=== PATIENT | female | born 1985 | race African-American/Black ===

== ENCOUNTER 2021-06-30 13:41 | Emergency (ER) | payer MEDICAID ==
[~2021-06-30] VITALS: Ht 165.1 cm; Wt 100.7 kg
[2021-06-30 14:03] VITALS: BP 140/80
--- NOTE | 2021-06-30 14:58 | NUR ---
urine in dirty utility
--- NOTE | 2021-06-30 15:00 | NUR ---
36 y/o female, c/o low back pain, pelvic pain for 2 months. denies dysuria, hemturia, vaginal bleeding/discharge or n&v. pmh: denies nka med: denies
[2021-06-30 15:11] LABS: BASOPHILS % (AUTO) 0.3 % (0.0-2.0); EOSINOPHILS # (AUTO) 0.1 K/uL (0-0.4); EOSINOPHILS % (AUTO) 0.8 % (0.0-4.0); HEMATOCRIT 34.3 % (36-48); HEMOGLOBIN 11.5 g/dL (12.0-16.0); LYMPHOCYTES # (AUTO) 1.3 K/uL (2.5-16.5); LYMPHOCYTES % (AUTO) 21.2 % (20.5-51.1); MEAN CORPUSCULAR HEMOGLOBIN 30 pg (27-31); MEAN CORPUSCULAR HGB CONC 34 g/dL (33-37); MEAN CORPUSCULAR VOLUME 87.9 fL (80-94); MONOCYTES # (AUTO) 0.5 K/uL (0.8-1.0); MONOCYTES % (AUTO) 8.6 % (1.7-9.3); NEUTROPHILS # (AUTO) 4.3 K/uL (1.8-7.7); NEUTROPHILS % (AUTO) 69.1 % (42.2-75.2); PLATELET COUNT (AUTO) 290 K/uL (140-450); RED CELL DISTRIBUTION WIDTH 13.7 % (11.6-13.7); WHITE BLOOD COUNT (AUTO) 6.3 K/uL (4.8-10.8)
[2021-06-30 15:11] LABS: APPEARANCE,URINE CLEAR (CLEAR); BILIRUBIN,URINE NEGATIVE (NEGATIVE); BLOOD, URINE TRACE-I (NEGATIVE); COLOR,URINE YELLOW (YELLOW); LEUKOCYTE ESTERASE ,URINE NEGATIVE (NEGATIVE); NITRITE, URINE NEGATIVE (NEGATIVE); UGLUCOSE NEGATIVE (NEGATIVE)
[2021-06-30 15:23] LABS: RBC,URINE 0-5 /HPF (0-5); WBC,URINE 0-5 /HPF (0-5)
[2021-06-30 15:28] LABS: ALBUMIN 3.6 g/dL (3.4-5.0); ANION GAP 12.8 (8-16); CARBON DIOXIDE 25.8 mmol/L (21-32); CREATININE 0.6 mg/dL (0.6-1.3); POTASSIUM 3.6 mmol/L (3.5-5.1); TOTAL BILIRUBIN 0.2 mg/dL (0.0-1.0)
[2021-06-30] MEDS ORDERED: ACET-10509 PO (17:40)
[2021-06-30 18:10] VITALS: BP 140/80
== END 2021-06-30 18:10 | disposition home or self-care (01) ==
LOC: MED 13:41
DX: O26.892 Other specified pregnancy related conditions, second trimester (principal); R10.2 Pelvic and perineal pain; Z3A.13 13 weeks gestation of pregnancy; Z79.899 Other long term (current) drug therapy
CPT/HCPCS: 36415; 76801; 80053; 81001; 81025; 83690; 84702; 85025; 99284; Q0092

== ENCOUNTER 2022-01-10 09:11 | Emergency (ER) | payer MEDICAID ==
[~2022-01-10] VITALS: Ht 165.1 cm; Wt 106.3 kg
[~2022-01-10 09:11] MED LIST: ACET-10509 PO
[2022-01-10 09:22] VITALS: BP 154/98
--- NOTE | 2022-01-10 09:30 | NUR ---
PT WHEELCHAIR ASSISTED TO ROOM 7
--- NOTE | 2022-01-10 10:00 | NUR ---
36YO FEMALE PT C/O EDEMA AND CRAMPING 8/10 R HIP PAIN X5 DAYS. PT REPORTS GIVING ON WEDNESDAY AND HAVING PAIN / SWELLING SINCE. PT STATES PAIN AT MOST ON MOVEMENT AND NOTES SWELLING WHEN STANDING FOR LONG PERIODS OF TIME. PT WILL ELEVATE FEET FOR COMFORT AND STATES TAKING TYLENOL WITH NO RELIEF. PT PRESENTS WITH MILD NON PITTING SWELLING BILATERALY IN LOWER EXTREMITIES WITH MORE NOTED ON L LEG AND FOOT. PT STATES HAVING SAME SYMPTOMS THROUGHOUT PREGANCY AND TOLD IT WAS DUE TO FETUS PRESSURE ON HIP. STATES MILD VAGINAL BLEEDING. DENIES N/V/D OR CHEST PAIN. PT AMBULATORY W/ MINIMAL ASSIST. PT AAOX4, NO VISIBLE DISTRESS. RESPIRATIONS EVEN UNLABORED. HOB POSITIONED PER PT COMFORT. DAUGHTER AT BEDSIDE HX: GESTATIONAL DIABETES NKA
--- NOTE | 2022-01-10 10:33 | NUR ---
MD CUELLAR AT BEDSIDE FOR EVALUATION
[2022-01-10] MEDS ORDERED: NIFEdipine 30 MG TABER PO ONE (10:45)
[2022-01-10] MEDS ORDERED: CRUSHER, PILL MC ONE (10:53)
--- NOTE | 2022-01-10 10:58 | NUR ---
LAB AT BEDSIDE
[2022-01-10 11:10] LABS: BASOPHILS % (AUTO) 0.4 % (0.0-2.0); EOSINOPHILS # (AUTO) 0.1 K/uL (0-0.4); EOSINOPHILS % (AUTO) 1.7 % (0.0-4.0); HEMOGLOBIN 11.9 g/dL (12.0-16.0); LYMPHOCYTES # (AUTO) 0.7 K/uL (2.5-16.5); LYMPHOCYTES % (AUTO) 13.8 % (20.5-51.1); MEAN CORPUSCULAR HEMOGLOBIN 30 pg (27-31); MEAN CORPUSCULAR HGB CONC 33 g/dL (33-37); MEAN CORPUSCULAR VOLUME 91.1 fL (80-94); MONOCYTES # (AUTO) 0.6 K/uL (0.8-1.0); MONOCYTES % (AUTO) 10.9 % (1.7-9.3); NEUTROPHILS % (AUTO) 73.2 % (42.2-75.2); PLATELET COUNT (AUTO) 230 K/uL (140-450); RED BLOOD CELL COUNT(AUTO) 3.95 MIL/uL (4.20-5.40); RED CELL DISTRIBUTION WIDTH 15.5 % (11.6-13.7); WHITE BLOOD COUNT (AUTO) 5.4 K/uL (4.8-10.8)
--- NOTE | 2022-01-10 11:26 | NUR ---
ULTRASOUND AT BEDSIDE
[2022-01-10 11:34] LABS: ALBUMIN 2.6 g/dL (3.4-5.0); ANION GAP 11.1 (8-16); CARBON DIOXIDE 28.7 mmol/L (21-32); CREATININE 0.6 mg/dL (0.6-1.3); MAGNESIUM 1.7 mg/dL (1.8-2.4); POTASSIUM 3.8 mmol/L (3.5-5.1); TOTAL BILIRUBIN 0.3 mg/dL (0.0-1.0)
--- NOTE | 2022-01-10 12:03 | NUR ---
PT WHEELCHAIR ASSISTED TO CAR BY STUDENTS FOR
--- NOTE | 2022-01-10 12:15 | NUR ---
PT WHEELCHAIR ASSISTED BACK TO ROOM
[2022-01-10 12:22] LABS: APPEARANCE,URINE SL CLOUDY (CLEAR); BILIRUBIN,URINE NEGATIVE (NEGATIVE); BLOOD, URINE 3+ (NEGATIVE); COLOR,URINE DARK YELLOW (YELLOW); LEUKOCYTE ESTERASE ,URINE 3+ (NEGATIVE); NITRITE, URINE NEGATIVE (NEGATIVE); PH,URINE 6.5 (5.0-9.0); UGLUCOSE NEGATIVE (NEGATIVE)
[2022-01-10 12:43] LABS: RBC,URINE 11-20 (MOD) /HPF (0-5)
[2022-01-10 12:44] LABS: RED BLOOD CELL CASTS,URINE 0-10 /LPF (None Seen)
[2022-01-10 12:45] LABS: OTHER CASTS, URINE None Seen /LPF (None Seen)
[2022-01-10] MEDS ORDERED: ACET-10509 PO (13:23)
[2022-01-10] MEDS ORDERED: LID5T TP (13:23)
[2022-01-10] MEDS ORDERED: IBUP-2213 PO (13:23)
[2022-01-10] MEDS ORDERED: NIFE30TE5 PO (13:23)
[2022-01-10 13:55] VITALS: BP 128/81
--- NOTE | 2022-01-10 13:55 | NUR ---
Patient discharged with v/s stable. Written and verbal after care instructions FOR SCIATICA AND HTN DURING given and explained. Patient alert, oriented and verbalized understanding of instructions. Ambulatory with steady gait. All questions addressed prior to discharge. ID band removed. Patient advised to follow up with PMD. Rx of TYLENOL EXTRA STRENGTH, IBUPROFEN, LIDODERM 5%PATCH AND PROCARDIA XL given.Opportunity to ask questions provided and answered.
--- NOTE | 2022-01-10 13:56 | NUR ---
Chart checked and completed. The patient's care was reviewed and supervised by Vanessa Robbins RN.
[2022-01-13 09:06] LABS: LACTATE DEHYDROGENASE 189 IU/L (119-226)
[2022-01-15 06:07] LABS: LD1 FRACTION 20 % (17-32); LD2 FRACTION 29 % (25-40); LD4 FRACTION 13 % (5-13); LD5 FRACTION 10 % (4-20)
== END 2022-01-10 13:55 | disposition home or self-care (01) ==
LOC: MED 09:11
DX: O16.5 Unspecified maternal hypertension, complicating the puerperium (principal); M54.31 Sciatica, right side; Z79.899 Other long term (current) drug therapy
CPT/HCPCS: 36415; 80053; 81001; 81025; 83625; 83735; 85025; 87086; 93971; 99284; Q0092

== ENCOUNTER 2024-02-19 10:32 | Emergency (ER) | payer MEDICAID ==
[~2024-02-19] VITALS: Ht 166.4 cm; Wt 100.4 kg
[~2024-02-19 10:32] MED LIST changes: -ACET-10509 PO; +ACET500T99 PO; +IBUP-2213 PO; +LID5T TP; +NIFE30TE5 PO
[2024-02-19 10:54] VITALS: BP 135/82; PULSE 72; RESP 17; TEMP 98.3; O2SAT 99
--- NOTE | 2024-02-19 11:29 | NUR ---
ASSUMED PATIENT CARE, NURSING ASSESSMENT COMPLETED.
[2024-02-19] MEDS ORDERED: BENZ7GEL5 MM (11:31)
[2024-02-19] MEDS ORDERED: ACET-8905 PO (11:31)
[2024-02-19] MEDS: KETOROLAC 30 MG/ML VIAL IM ONE (11:40)
[2024-02-19 12:01] VITALS: BP 135/82; PULSE 72; RESP 17; TEMP 98.3; O2SAT 99
--- NOTE | 2024-02-19 12:02 | NUR ---
Patient discharged with v/s stable. Written and verbal after care instructions given and explained. Patient alert, oriented and verbalized understanding of instructions. Ambulatory with steady gait. All questions addressed prior to discharge. ID band removed. Patient advised to follow up with PMD. Rx of NORCO ORAJEL given. Patient educated on indication of medication including possible reaction and side effects. Opportunity to ask questions provided and answered.
== END 2024-02-19 12:02 | disposition home or self-care (01) ==
LOC: MED 10:32
DX: K08.89 Other specified disorders of teeth and supporting structures (principal); R03.0 Elevated blood-pressure reading, without diagnosis of hypertension; Z79.899 Other long term (current) drug therapy
CPT/HCPCS: 81025; 96372; 99283; J1885